=== PATIENT | male | born 1990 | race Caucasian/White ===

== ENCOUNTER 2019-08-14 23:03 | Emergency (ER) | payer OTHER ==
[~2019-08-14] VITALS: Ht 177.8 cm; Wt 77.3 kg
[2019-08-14 23:08] VITALS: BP 129/75; TEMP 99
[2019-08-15 00:27] VITALS: PULSE 86
== END 2019-08-15 00:29 | disposition home or self-care (01) ==
LOC: COL.ER 23:03
DX: S00.411A Abrasion of right ear, initial encounter (principal); F17.210 Nicotine dependence, cigarettes, uncomplicated; X58.XXXA Exposure to other specified factors, initial encounter